=== PATIENT | male | born 1940 | race Caucasian/White ===

== ENCOUNTER 2018-03-16 05:41 | Inpatient (IN) | payer MEDICARE ==
[~2018-03-16 05:41] MED LIST: BUPIVACAINE INJ/PF LIPOSOME/PF 266 MG/20 ML SDV IJ PRN; CEFAZOLIN INJ 1 GM VIAL IV PRN; IBUPROFEN 800 MG/NS 250 ML IV PRN; LACTATED RINGERS 1000 ML IV PRN; LANSOPRAZOLE 15 MG TAB.RAP.DR PO PRN; LIDOCAINE 0.5% INJ-PF (5 MG/ML) 50 ML SDV SUBCUT PRN; OXYCODONE HCL SR 10 MG TABLET PO PRN; VANCOMYCIN HCL 1,000 MG in DEXTROSE 5%-WATER 250 ML IV PRN
[2018-03-16] MEDS ORDERED: THROMBIN (BOVINE) TOPICAL 20000 UNIT VIAL ONE (06:35)
[2018-03-16] MEDS ORDERED: BUPIVACAINE INJ/PF LIPOSOME/PF 266 MG/20 ML SDV ONE (06:36)
[2018-03-16] MEDS ORDERED: THROMBIN (BOVINE) 5000 UNIT EPITAXIS KIT ONE (06:36)
[2018-03-16] MEDS ORDERED: ONDANSETRON HCL INJ/PF 4 MG/2 ML SDV ONE (07:15)
[2018-03-16] MEDS ORDERED: MIDAZOLAM 2 MG/2 ML INJ ONE (07:15)
[2018-03-16] MEDS ORDERED: TRANEXAMIC ACID INJ/PF 1,000 MG/10 ML SDV IV ONE ×3 (07:15→10:30)
[2018-03-16] MEDS ORDERED: FENTANYL CITRATE INJ/PF 100 MCG/2 ML AMPUL ONE (07:15)
[2018-03-16] MEDS ORDERED: PROPOFOL INJ 200 MG/20 ML VIAL IV ONE (07:15)
[2018-03-16] MEDS ORDERED: BUPIVACAINE HCL/DEX-WATER/PF 15 MG/2 ML AMPULE ONE (07:17)
[2018-03-16] MEDS ORDERED: MORPHINE SULFATE 10 MG/ML INJ IV PRN ×4 (08:25→08:46)
[2018-03-16] MEDS ORDERED: FENTANYL CITRATE INJ/PF 100 MCG/2 ML AMPUL IV PRN ×3 (08:25)
[2018-03-16] MEDS ORDERED: OXYCODONE-ACETAMINOPHEN 5-325 MG TABLET PO PRN ×2 (08:25)
[2018-03-16] MEDS ORDERED: MEPERIDINE HCL/PF INJ 25 MG/1 ML DISP.SYRIN IV PRN (08:25)
[2018-03-16] MEDS ORDERED: PROMETHAZINE HCL INJ 25 MG/1 ML VIAL IV PRN ×2 (08:25)
[2018-03-16] MEDS ORDERED: DIPHENHYDRAMINE HCL 50 MG/ML VIAL IV PRN ×2 (08:25→08:46)
[2018-03-16] MEDS ORDERED: RINGERS SOLUTION,LACTATED 1,000 ML IV PRN (08:46)
[2018-03-16] MEDS ORDERED: ZOLPIDEM TARTRATE 5 MG TABLET PO PRN (08:46)
[2018-03-16] MEDS ORDERED: MORPHINE SULFATE 10 MG/ML INJ IM PRN (08:46)
[2018-03-16] MEDS ORDERED: ACETAMINOPHEN 325 MG TABLET PO PRN (08:46)
[2018-03-16] MEDS ORDERED: MAG HYDROX/AL HYDROX/SIMETH SUSP 30 ML UDCUP PO PRN (08:46)
[2018-03-16] MEDS ORDERED: ONDANSETRON 4 MG TAB.RAPDIS PO PRN (08:46)
[2018-03-16] MEDS ORDERED: OXYCODONE HCL IR 5 MG TABLET PO PRN (08:46)
--- NOTE | 2018-03-16 08:51 | Operative Report ---
Operative Report DATE OF SURGERY: 03/16/18 PREOPERATIVE DIAGNOSIS: Right hip arthritis OPERATION: Right hip arthroplasty SURGEON: NIRANJAN AGGARWAL ANESTHESIA: GA TISSUE REMOVED OR ALTERED: Femoral head to pathology ESTIMATED BLOOD LOSS: 100 PROCEDURE: Implants used: Femur: Carlos Manuel Accolade 2 stem size 8 Acetabular shell: 58 mm hemispherical shell Liner: 36 mm flat cross-link polyethylene liner Head: 36 mm chrome cobalt head +5 neck The patient is placed in a left lateral decubitus position on the operating table. The right lower extremity and hindquarter is prepped and draped in a sterile fashion. A curvilinear incision was made over the greater trochanter a posterior approach the hip was taken. The femoral head is dislocated and the femoral neck transected using an oscillating saw. Attention was next turned to the acetabulum. Soft tissues cleared off the acetabulum using electrocautery. The acetabulum was then prepared using a series of hemispherical reamers until a 58 millimeters reamer is seated. Subsequently a 58 millimeters Carlos Manuel titanium hemispherical shell is impacted into position and secured with one screw. A standard flat 36 millimeters cross- link liner is impacted into the shell. Attention was next turned to the femur. Access is gained to the femoral canal using a box osteotome to the piriformis fossa. The femur is then prepared using a series of broaches until a number 8 broach is seated. A trial reduction was now performed using a 36 millimeters head with +5 neck. Preoperative leg length was recreated and is excellent anterior posterior stability. A decision was made to proceed with the above construct. All trial implants were removed. The wound is irrigated with pulsed lavage. A number 8 stem is impacted into the femoral canal. A trial reduction was again performed with a 36 mm head and a +5 neck. Findings as previously. The hip was dislocated one last time and the final chrome-cobalt head is impacted onto the trunnion. The hip was reduced. Wound is copiously irrigated with pulsed lavage. Sent closed in layers using interrupted Vicryl followed by karyna. A sterile dressing is applied and the patient's returned to recovery room in satisfactory patient.
--- NOTE | 2018-03-16 09:44 | RADIOLOGY REPORT (SQ) ---
EXAM DESCRIPTION: PELVIS AP COMPLETED DATE/TIME: 03/16/2018 9:27 am REASON FOR STUDY: Post Op Long Cassette in PACU M16.11 UNILATERAL PRIMARY OSTEOARTHRITIS, RIGHT H IP M25.559 PAIN IN UNSPECIFIED HIP COMPARISON: None. NUMBER OF VIEWS: AP pelvis, frog-leg view (two views) TECHNIQUE: Digital radiographic images of the right hip post-procedure. LIMITATIONS: None. FINDINGS: BONES: No worrisome or unexpected findings post-procedure. DEVICE: Non cemented right hip replacement with acetabular component anchored by a single screw. SOFT TISSUES: No worrisome findings. Expected postoperative soft tissue changes. IMPRESSION: SATISFACTORY POSTOPERATIVE RIGHT HIP. TECHNICAL DOCUMENTATION: JOB ID: [id number] [employer]- All Rights Reserved Reading location - IP/workstation name: [email or web address]
[2018-03-16] MEDS ORDERED: (PENDING PHARMACY ID) (Lisinopril [Lisinopril] 20 MG) PO SCH (10:00)
[2018-03-16] MEDS ORDERED: GLYCOPYRROLATE 1 MG/5 ML SYRINGE ONE (11:56)
[2018-03-16] MEDS ORDERED: SUCCINYLCHOLINE CHLORIDE INJ 200 MG/10 ML VIAL ONE (11:56)
[2018-03-16] MEDS ORDERED: PHENYLEPHRINE HCL INJ/PF 10 MG/1 ML SDV ONE (11:56)
[2018-03-16] MEDS ORDERED: MELOXICAM 7.5 MG TABLET PO PRN (13:23)
[2018-03-16] MEDS: VENLAFAXINE HCL 75 MG CAP.SR.24H PO SCH (13:59)
[2018-03-16] MEDS: GABAPENTIN 300 MG CAPSULE PO SCH ×2 (14:25→22:17)
[2018-03-16] MEDS: IBUPROFEN 800 MG in NORMAL SALINE 250 ML IV SCH (14:26)
[2018-03-16] MEDS ORDERED: TAMSULOSIN HCL 0.4 MG CAP.SR.24H PO ONE (15:00)
[2018-03-16] MEDS: CALCIUM CARBONATE 500 MG TABLET PO SCH (16:11)
[2018-03-16] MEDS ORDERED: TAMSULOSIN HCL 0.4 MG CAP.SR.24H PO SCH (17:00)
[2018-03-16] MEDS ORDERED: (PENDING PHARMACY ID) (Calcium Carbonate [Calcium] 600 MG) PO SCH (17:00)
[2018-03-16] MEDS: OXYCODONE HCL SR 10 MG TABLET PO SCH (17:49)
[2018-03-16] MEDS: SENNOSIDES/DOCUSATE 8.6-50 MG 1 EACH TABLET PO SCH (17:49)
[2018-03-16] MEDS ORDERED: VANCOMYCIN HCL 1,000 MG in DEXTROSE 5%-WATER 250 ML IV ONE (21:00)
[2018-03-16] MEDS ORDERED: SIMVASTATIN 40 MG TABLET PO SCH (22:00)
[2018-03-16] MEDS ORDERED: VERAPAMIL HCL 120 MG TABLET PO SCH (22:00)
[2018-03-16] MEDS: VERAPAMIL HCL 120 MG TABLET.SA PO SCH (22:17)
[2018-03-16] MEDS: SIMVASTATIN 40 MG TABLET PO SCH (22:17)
[2018-03-17] MEDS: IBUPROFEN 800 MG in NORMAL SALINE 250 ML IV SCH ×2 (00:04→05:49)
[2018-03-17] MEDS: OXYCODONE HCL SR 10 MG TABLET PO SCH ×2 (05:52→17:13)
[2018-03-17] MEDS: LANSOPRAZOLE 30 MG TAB.RAP.DR PO SCH (05:53)
[2018-03-17] MEDS: GABAPENTIN 300 MG CAPSULE PO SCH ×3 (05:53→21:20)
[2018-03-17 06:29] LABS: HEMATOCRIT 41.5 % (37.9-51.0); HEMOGLOBIN 13.5 g/dL (13.5-17.0); MEAN CORPUSCULAR HEMOGLOBIN 28.4 pg (27.0-33.4); MEAN CORPUSCULAR HGB CONC 32.6 g/dL (32.0-36.0); MEAN CORPUSCULAR VOLUME 87 fl (80-97); PLATELET COUNT 242 10^3/uL (150-450); RED BLOOD COUNT 4.77 10^6/uL (4.35-5.55); RED CELL DISTRIBUTION WIDTH 13.9 % (11.5-14.0); WHITE BLOOD COUNT 16.4 10^3/uL (4.0-10.5)
--- NOTE | 2018-03-17 06:45 | PDOC PROGRESS REPORT ---
Subjective Progress Note for:: 03/17/18 Reason For Visit: RIGHT HIP ARTHRITIS 77-year-old white male postop day 1 right hip arthroplasty. Patient denies any significant discomfort. Patient ambulated 30 feet with physical therapy yesterday. Physical Exam Vital Signs: Temp Pulse Resp BP Pulse Ox 36.8 C 86 16 147/64 H 97 03/16/18 20:39 03/16/18 20:39 03/16/18 20:39 03/16/18 20:39 03/17/18 00:48 Intake & Output 03/15/18 03/16/18 03/17/18 06:59 06:59 06:59 Intake Total 0 4766 Output Total 3050 Balance 0 1716 Weight 140.8 kg General appearance: PRESENT: no acute distress, obese Head exam: PRESENT: normocephalic Respiratory exam: PRESENT: unlabored Cardiovascular exam: PRESENT: RRR Pulses: PRESENT: +1 pedal pulses bilateral Vascular exam: PRESENT: normal capillary refill GI/Abdominal exam: PRESENT: soft Rectal exam: PRESENT: deferred Extremities exam: PRESENT: other - Right hip dressing clean dry and intact. Leg lengths are equal. Distal neurovascular examination is intact. Neurological exam: PRESENT: alert, awake, oriented to person, oriented to place , oriented to time, oriented to situation. ABSENT: motor sensory deficit Psychiatric exam: PRESENT: appropriate affect, normal mood. ABSENT: homicidal ideation, suicidal ideation Skin exam: PRESENT: dry, intact, warm. ABSENT: cyanosis, rash Results Laboratory Results: 03/17/18 05:56 03/16/18 03/17/18 06:20 05:56 WBC 16.4 H RBC 4.77 Hgb 13.5 Hct 41.5 MCV 87 MCH 28.4 MCHC 32.6 RDW 13.9 Plt Count 242 Blood Type A POSITIVE Antibody Screen NEGATIVE Impressions: Pelvis X-Ray 03/16/18 08:47 IMPRESSION: SATISFACTORY POSTOPERATIVE RIGHT HIP. Status: Imported from PACS Assessment & Plan - Diagnosis (1) Arthritis of right hip Is this a current diagnosis for this admission?: Yes Plan: Patient to be mobilized with physical therapy and weightbearing as tolerated basis. Anticipate discharge home tomorrow with home health services and DME. - Time Time Spent with patient: 15-24 minutes Anticipated discharge: Home with Homehealth Within: within 24 hours
[2018-03-17 06:52] LABS: ANION GAP 13 (5-19); BLOOD UREA NITROGEN 22 mg/dL (7-20); CALCIUM 8.8 mg/dL (8.4-10.2); CARBON DIOXIDE 26 mmol/L (22-30); CHLORIDE 104 mmol/L (98-107); GLUCOSE 123 mg/dL (75-110); POTASSIUM 5.1 mmol/L (3.6-5.0); SODIUM 142.9 mmol/L (137-145)
[2018-03-17] MEDS: PRENATAL VITAMIN W DHA CAPSULE PO SCH (09:22)
[2018-03-17] MEDS: ASPIRIN 81 MG TABLET, CHEWABLE PO SCH (09:23)
[2018-03-17] MEDS: CALCIUM CARBONATE 500 MG TABLET PO SCH ×2 (09:23→16:11)
[2018-03-17] MEDS: CHOLECALCIFEROL (D3) 1,000 UNIT TABLET PO SCH (09:23)
[2018-03-17] MEDS: SENNOSIDES/DOCUSATE 8.6-50 MG 1 EACH TABLET PO SCH ×2 (09:23→17:13)
[2018-03-17] MEDS: VENLAFAXINE HCL 75 MG CAP.SR.24H PO SCH ×2 (09:23→11:32)
[2018-03-17] MEDS ORDERED: VENLAFAXINE HCL 75 MG CAP.SR.24H PO SCH (10:00)
[2018-03-17] MEDS ORDERED: (PENDING PHARMACY ID) (Lisinopril [Prinivil] 20 MG) PO SCH (10:00)
[2018-03-17] MEDS ORDERED: TAMSULOSIN HCL 0.4 MG CAP.SR.24H PO SCH (10:00)
[2018-03-17] MEDS: VERAPAMIL HCL 120 MG TABLET.SA PO SCH ×2 (10:00→21:20)
[2018-03-17] MEDS: ONDANSETRON HCL INJ/PF 4 MG/2 ML SDV IV PRN ×2 (10:27→17:54)
[2018-03-17] MEDS: LISINOPRIL 10 MG TABLET PO SCH (11:18)
[2018-03-17] MEDS: IBUPROFEN 800 MG in DEXTROSE 5%-WATER 250 ML IV SCH ×2 (13:44→21:50)
[2018-03-17] MEDS: TAMSULOSIN HCL 0.4 MG CAP.SR.24H PO SCH (16:11)
[2018-03-17] MEDS: SIMVASTATIN 40 MG TABLET PO SCH (21:21)
[2018-03-18] MEDS: LANSOPRAZOLE 30 MG TAB.RAP.DR PO SCH (05:08)
[2018-03-18] MEDS: OXYCODONE HCL SR 10 MG TABLET PO SCH (05:08)
[2018-03-18] MEDS: GABAPENTIN 300 MG CAPSULE PO SCH ×3 (05:08→21:57)
[2018-03-18 05:41] LABS: HEMATOCRIT 39.4 % (37.9-51.0); HEMOGLOBIN 13.3 g/dL (13.5-17.0); MEAN CORPUSCULAR HEMOGLOBIN 29.4 pg (27.0-33.4); MEAN CORPUSCULAR HGB CONC 33.9 g/dL (32.0-36.0); MEAN CORPUSCULAR VOLUME 87 fl (80-97); PLATELET COUNT 232 10^3/uL (150-450); RED BLOOD COUNT 4.53 10^6/uL (4.35-5.55); RED CELL DISTRIBUTION WIDTH 13.7 % (11.5-14.0); WHITE BLOOD COUNT 18.6 10^3/uL (4.0-10.5)
[2018-03-18 06:07] LABS: ANION GAP 14 (5-19); BLOOD UREA NITROGEN 34 mg/dL (7-20); CALCIUM 8.6 mg/dL (8.4-10.2); CARBON DIOXIDE 25 mmol/L (22-30); CHLORIDE 103 mmol/L (98-107); GLUCOSE 115 mg/dL (75-110); POTASSIUM 5.9 mmol/L (3.6-5.0); SODIUM 142.1 mmol/L (137-145)
[2018-03-18] MEDS: IBUPROFEN 800 MG in DEXTROSE 5%-WATER 250 ML IV SCH (06:07)
--- NOTE | 2018-03-18 07:38 | PDOC PROGRESS REPORT ---
Subjective Progress Note for:: 03/18/18 Reason For Visit: RIGHT HIP ARTHRITIS 77-year-old white male now postop day 2 from right hip arthroplasty. Patient exhibiting nausea and vomiting, hyperkalemia, and mental status changes last night. Physical Exam Vital Signs: Temp Pulse Resp BP Pulse Ox 36.8 C 93 17 127/60 H 94 03/17/18 19:35 03/17/18 19:35 03/17/18 19:35 03/17/18 19:35 03/17/18 19:35 Intake & Output 03/17/18 03/18/18 03/19/18 06:59 06:59 06:59 Intake Total 5016 1952 Output Total 3050 960 Balance 1966 992 Weight 140.8 kg 140.6 kg Physical Exam: Mental status is clear and appropriate this morning. Nausea seems to have resolved. General appearance: PRESENT: no acute distress Head exam: PRESENT: normocephalic Respiratory exam: PRESENT: unlabored Cardiovascular exam: PRESENT: RRR Pulses: PRESENT: +1 pedal pulses bilateral Vascular exam: PRESENT: normal capillary refill GI/Abdominal exam: PRESENT: soft Rectal exam: PRESENT: deferred Extremities exam: PRESENT: other - Right hip dressing with no new drainage. Leg lengths are equal. Distal neurovascular examination is intact. Neurological exam: PRESENT: alert, awake, oriented to person, oriented to place , oriented to time, oriented to situation. ABSENT: motor sensory deficit Psychiatric exam: PRESENT: appropriate affect, normal mood. ABSENT: homicidal ideation, suicidal ideation Results Laboratory Results: 03/18/18 04:51 03/18/18 04:51 03/18/18 03/18/18 04:51 04:51 WBC 18.6 H RBC 4.53 Hgb 13.3 L Hct 39.4 MCV 87 MCH 29.4 MCHC 33.9 RDW 13.7 Plt Count 232 Sodium 142.1 Potassium 5.9 H Chloride 103 Carbon Dioxide 25 Anion Gap 14 BUN 34 H Creatinine 2.28 H Est GFR ( Amer) 34 L Est GFR (Non-Af Amer) 28 L Glucose 115 H Calcium 8.6 Impressions: Pelvis X-Ray 03/16/18 08:47 IMPRESSION: SATISFACTORY POSTOPERATIVE RIGHT HIP. Status: Imported from PACS Assessment & Plan - Diagnosis (1) Arthritis of right hip Is this a current diagnosis for this admission?: Yes Plan: Patient's potassium is 5.9. Labs to be repeated this morning. Mental status changes seems to have resolved. Nausea and vomiting not present currently. Making progress with physical therapy. - Time Time Spent with patient: 15-24 minutes Anticipated discharge: Home with Homehealth Within: Other - Plan Summary Plan Summary: Patient to continue with inpatient physical therapy. Treatment of hyperkalemia of repeated labs confirm
[2018-03-18 08:12] LABS: ANION GAP 12 (5-19); BLOOD UREA NITROGEN 33 mg/dL (7-20); CALCIUM 8.4 mg/dL (8.4-10.2); CARBON DIOXIDE 24 mmol/L (22-30); CHLORIDE 103 mmol/L (98-107); GLUCOSE 155 mg/dL (75-110); SODIUM 138.7 mmol/L (137-145)
[2018-03-18] MEDS: CALCIUM CARBONATE 500 MG TABLET PO SCH ×2 (08:37→17:05)
[2018-03-18] MEDS: SENNOSIDES/DOCUSATE 8.6-50 MG 1 EACH TABLET PO SCH ×2 (10:35→17:05)
[2018-03-18] MEDS: CHOLECALCIFEROL (D3) 1,000 UNIT TABLET PO SCH (10:35)
[2018-03-18] MEDS: VENLAFAXINE HCL 75 MG CAP.SR.24H PO SCH (10:35)
[2018-03-18] MEDS: LISINOPRIL 10 MG TABLET PO SCH (10:36)
[2018-03-18] MEDS: PRENATAL VITAMIN W DHA CAPSULE PO SCH (10:36)
[2018-03-18] MEDS: ASPIRIN 81 MG TABLET, CHEWABLE PO SCH (10:36)
[2018-03-18] MEDS: VERAPAMIL HCL 120 MG TABLET.SA PO SCH (10:37)
[2018-03-18 12:06] LABS: APPEARANCE,URINE SLIGHTLY-CLOUDY; BILIRUBIN,URINE NEGATIVE (NEGATIVE); COLOR,URINE YELLOW; GLUCOSE, URINE 50 mg/dL (NEGATIVE); KETONES,URINE NEGATIVE (NEGATIVE); LEUKOCYTE ESTERASE,URINE TRACE (NEGATIVE); NITRITE,URINE NEGATIVE (NEGATIVE); PROTEIN,URINE 30 mg/dL (NEGATIVE); URINE SPECIFIC GRAVITY 1.015; UROBILINOGEN,URINE NEGATIVE mg/dL (<2.0)
--- NOTE | 2018-03-18 14:07 | RADIOLOGY REPORT (SQ) ---
EXAM DESCRIPTION: CHEST SINGLE VIEW COMPLETED DATE/TIME: 03/18/2018 11:25 am REASON FOR STUDY: PNEUMONIA COMPARISON: None. EXAM PARAMETERS: NUMBER OF VIEWS: One view. TECHNIQUE: Single frontal radiographic view of the chest acquired. RADIATION DOSE: NA LIMITATIONS: None. FINDINGS: LUNGS AND PLEURA: No opacities, masses or pneumothorax. No pleural effusion. MEDIASTINUM AND HILAR STRUCTURES: No masses. Contour normal. HEART AND VASCULAR STRUCTURES: Moderate cardiomegaly BONES: Advanced arthritis of both shoulders, loose body right shoulder subcoracoid recess HARDWARE: Left-sided dual lead pacemaker OTHER: No other significant finding. IMPRESSION: Cardiomegaly. No acute infiltrates. TECHNICAL DOCUMENTATION: JOB ID: [id number] [employer]- All Rights Reserved Reading location - IP/workstation name: [email or web address]
[2018-03-18] MEDS ORDERED: 1/2 NORMAL SALINE 1,000 ML IV PRN (15:38)
--- NOTE | 2018-03-18 15:53 | PDOC CONSULTATION ---
Consultation Consult Date: 03/18/18 Attending physician:: NIRANJAN AGGARWAL Consult reason:: Acute renal failure and leukocytosis postoperatively History of Present Illness Admission Date/PCP: 03/16/18 05:41 DAKOTA CROW Patient complains of: Patient was admitted for routine total hip replacement History of Present Illness: CASSY JIMÉNEZ is a 77 year old male Hypertension, degenerative joint disease, cardiac pacemaker placement, obesity had a routine total hip replacement done. Consultation was requested due to acute renal failure with a creatinine of 2.25 as well as leukocytosis with his white count at 18,000. Patient is 2 days postop. There are no immediate labs that I can find preoperatively but he did have some labs done in February which revealed a creatinine of about 1.06. Apparently patient had a lot of vomiting and nausea yesterday which is pretty substantial and was thought to be likely from narcotics as well as the anesthesia effect. This seems to have resolved as he has had no nausea and vomiting today. He denies any change in his urine quantity or quality and denies any abdominal pain although fever or dysuria or frequency. He does complain of some slight cough is nonproductive. Patient is a somewhat poor historian so I am really unable to obtain much of his past medical history and he looks like he really has not been admitted to the hospital prior to this admission Past Medical History Cardiac Medical History: Reports: Myocardial Infarction, Hyperlipidema, Hypertension Denies: Atrial Fibrillation, Congestive Heart Failure, Coronary Artery Disease, Peripheral Vascular Disease, Pulmonary Embolism, Heart Murmur Pulmonary Medical History: Reports: Sleep Apnea - doesn't use CPAP Denies: Asthma, Bronchitis, Chronic Obstructive Pulmonary Disease (COPD), Pneumonia, Respiratory Failure, Tuberculosis Neurological Medical History: Denies: Seizures Endocrine Medical History: Denies: Hyperthyroidism, Hypothyroidism Malignancy Medical History: Denies: Lung Cancer GI Medical History: Denies: Crohn's Disease, Gastroesophageal Reflux Disease, Hiatal Hernia Musculoskeltal Medical History: Reports: Arthritis - knees, hips, hands Denies: Fibromyalgia Psychiatric Medical History: Reports: Depression Denies: Bipolar Disorder, Post Traumatic Stress Disorder Hematology: Denies: Anemia Past Surgical History Past Surgical History: Reports: Appendectomy - 1992, Cholecystectomy, Herniorrhaphy, Orthopedic Surgery, Pacemaker Denies: Colostomy, Coronary Artery Bypass Graft, Gastric Bypass Surgery, Tonsillectomy Social History Information Source: [facility] Records Smoking Status: Never Smoker Hx Recreational Drug Use: No Hx Prescription Drug Abuse: No - Advance Directive Resuscitation Status: Full Code Family History Family History: None Parental Family History Reviewed: No Children Family History Reviewed: Unknown Sibling(s) Family History Reviewed.: Unknown Medication/Allergy Home Medications: Aspirin [Aspirin EC] 81 mg PO DAILY 03/16/18 Calcium Carbonate [Calcium] 600 mg PO BIDBS 03/16/18 Cholecalciferol (Vitamin D3) [Vitamin D3 1000 Unit Tablet] 1,000 unit PO DAILY 03/16/18 Gabapentin [Neurontin] 600 mg PO Q8 03/16/18 Lisinopril [Prinivil] 20 mg PO DAILY 03/16/18 Meloxicam [Mobic] 7.5 mg PO DAILYP PRN 03/16/18 Simvastatin [Zocor 40 mg Tablet] 40 mg PO QHS 03/16/18 Tamsulosin HCl [Flomax 0.4 mg Cap.sr] 0.4 mg PO DAILY 03/16/18 Venlafaxine HCl ER [Effexor Xr 75 mg Cap.sr] 225 mg PO DAILY 03/16/18 Verapamil HCl [Calan 120 mg Tablet] 120 mg PO Q12 03/16/18 Allergies/Adverse Reactions: adalimumab [From Humira] Allergy (Verified 03/16/18 11:57) Skin Redness Review of Systems All systems: reviewed and no additional remarkable complaints except as stated Physical Exam Vital Signs: Temp Pulse Resp BP Pulse Ox 98.6 F 95 18 137/59 H 93 03/18/18 11:09 03/18/18 11:09 03/18/18 11:09 03/18/18 11:09 03/18/18 11:09 Intake & Output 03/17/18 03/18/18 03/19/18 06:59 06:59 06:59 Intake Total 5016 1952 Output Total 3050 960 Balance 1966 992 Weight 140.8 kg 140.6 kg General appearance: PRESENT: no acute distress, morbidly obese, well-developed, well-nourished Head exam: PRESENT: atraumatic, normocephalic Eye exam: PRESENT: conjunctiva pink, EOMI, PERRLA. ABSENT: scleral icterus Ear exam: PRESENT: normal external ear exam Mouth exam: PRESENT: moist, tongue midline Neck exam: ABSENT: carotid bruit, JVD, lymphadenopathy, thyromegaly Respiratory exam: PRESENT: clear to auscultation gabby. ABSENT: rales, rhonchi, wheezes Cardiovascular exam: PRESENT: RRR. ABSENT: diastolic murmur, rubs, systolic murmur Pulses: PRESENT: normal dorsalis pedis pul Vascular exam: PRESENT: normal capillary refill GI/Abdominal exam: PRESENT: normal bowel sounds, soft. ABSENT: distended, guarding, mass, organolmegaly, rebound, tenderness Rectal exam: PRESENT: deferred Extremities exam: PRESENT: other - R thigh dressing, erythema and mild swelling. ABSENT: calf tenderness, clubbing, pedal edema Musculoskeletal exam: PRESENT: ambulatory Neurological exam: PRESENT: alert, awake, oriented to person, oriented to place , oriented to time, oriented to situation, CN II-XII grossly intact. ABSENT: motor sensory deficit Psychiatric exam: PRESENT: appropriate affect, normal mood. ABSENT: homicidal ideation, suicidal ideation Skin exam: PRESENT: dry, intact, warm. ABSENT: cyanosis, rash Results Laboratory Results: 03/18/18 04:51 03/18/18 07:22 03/18/18 03/18/18 03/18/18 04:51 04:51 07:22 WBC 18.6 H RBC 4.53 Hgb 13.3 L Hct 39.4 MCV 87 MCH 29.4 MCHC 33.9 RDW 13.7 Plt Count 232 Sodium 142.1 138.7 Potassium 5.9 H 5.0 Chloride 103 103 Carbon Dioxide 25 24 Anion Gap 14 12 BUN 34 H 33 H Creatinine 2.28 H 2.34 H Est GFR ( Amer) 34 L 33 L Est GFR (Non-Af Amer) 28 L 27 L Glucose 115 H 155 H Calcium 8.6 8.4 Urine Color Urine Appearance Urine pH Ur Specific [place] Urine Protein Urine Glucose (UA) Urine Ketones Urine Blood Urine Nitrite Ur Leukocyte Esterase Urine WBC (Auto) Urine RBC (Auto) 03/18/18 11:20 WBC RBC Hgb Hct MCV MCH MCHC RDW Plt Count Sodium Potassium Chloride Carbon Dioxide Anion Gap BUN Creatinine Est GFR ( Amer) Est GFR (Non-Af Amer) Glucose Calcium Urine Color YELLOW Urine Appearance SLIGHTLY-CLOUDY Urine pH 5.0 Ur Specific [place] 1.015 Urine Protein 30 H Urine Glucose (UA) 50 H Urine Ketones NEGATIVE Urine Blood SMALL H Urine Nitrite NEGATIVE Ur Leukocyte Esterase TRACE H Urine WBC (Auto) 52 Urine RBC (Auto) 1 Impressions: Pelvis X-Ray 03/16/18 08:47 IMPRESSION: SATISFACTORY POSTOPERATIVE RIGHT HIP. Chest X-Ray 03/18/18 00:00 IMPRESSION: Cardiomegaly. No acute infiltrates. Assessment & Plan - Diagnosis (1) YASMINE (acute kidney injury) Is this a current diagnosis for this admission?: Yes Plan: Likely secondary to intravascular volume depletion due to intractable nausea vomiting. We will plan cautious IV fluid. Will follow-up on labs in a.m. At this time I really will not pursue any other test unless his kidney function does not improve (2) UTI (urinary tract infection) Is this a current diagnosis for this admission?: Yes Plan: He has a mild UTI and so I will obtain urine culture and place him on empiric antibiotics (3) Dehydration Is this a current diagnosis for this admission?: Yes Plan: Cautious IV fluid as mentioned above (4) Arthritis of right hip Is this a current diagnosis for this admission?: Yes Plan: Status post total hip arthroplasty (5) Leukocytosis Qualifiers: Leukocytosis type: unspecified Qualified Code(s): D72.829 - Elevated white blood cell count, unspecified Is this a current diagnosis for this admission?: Yes Plan: I believe this is likely a reactive leukocytosis. There is no evidence of any overt infection. He does have a UTI but this should not cause this amount of leukocytosis. Will place on empiric antibiotic for his UTI and follow-up on his WBC count - Time Time Spent: 30 to 50 Minutes Medications reviewed and adjusted accordingly: Yes Anticipated discharge: Home Within: within 48 hours - Inpatient Certification Based on my medical assessment, after consideration of the patient's comorbidities, presenting symptoms, or acuity I expect that the services needed warrant INPATIENT care.: Yes Medical Necessity: Need For IV Fluids, Risk of Diagnosis Which Will Require Inpatient Eval/Care/Monitoring
[2018-03-18] MEDS ORDERED: CEFTRIAXONE 1 GM/D5W RTU 1 GM/50 ML RTUPB IV SCH (16:00)
[2018-03-18] MEDS: TAMSULOSIN HCL 0.4 MG CAP.SR.24H PO SCH (17:05)
[2018-03-18] MEDS ORDERED: CEFTRIAXONE SODIUM 1,000 MG in NORMAL SALINE 50 ML IV SCH (18:00)
[2018-03-18] MEDS ORDERED: CEFTRIAXONE SODIUM 1,000 MG in DEXTROSE 5%-WATER 50 ML IV SCH (18:00)
[2018-03-18] MEDS: SIMVASTATIN 40 MG TABLET PO SCH (21:57)
[2018-03-18] MEDS: VERAPAMIL HCL 120 MG TABLET PO SCH (21:58)
[2018-03-19] MEDS: LANSOPRAZOLE 30 MG TAB.RAP.DR PO SCH (05:34)
[2018-03-19] MEDS: GABAPENTIN 300 MG CAPSULE PO SCH ×2 (05:34→14:43)
[2018-03-19 06:09] LABS: HEMOGLOBIN 12.1 g/dL (13.5-17.0); MEAN CORPUSCULAR HGB CONC 33.6 g/dL (32.0-36.0); MEAN CORPUSCULAR VOLUME 86 fl (80-97); PLATELET COUNT 217 10^3/uL (150-450); RED BLOOD COUNT 4.18 10^6/uL (4.35-5.55); RED CELL DISTRIBUTION WIDTH 13.7 % (11.5-14.0); WHITE BLOOD COUNT 13.5 10^3/uL (4.0-10.5)
--- NOTE | 2018-03-19 06:24 | PDOC PROGRESS REPORT ---
Subjective Progress Note for:: 03/19/18 Reason For Visit: RIGHT HIP ARTHRITIS 77-year-old white male postop day 3 status post right hip arthroplasty. Patient now denies nausea vomiting or significant discomfort. Made limited progress with physical therapy yesterday ambulating 30 feet. UA is consistent with a UTI. Patient on empiric antibiotics for this. Repeat labs pending this morning. Physical Exam Vital Signs: Temp Pulse Resp BP Pulse Ox 37.0 C 95 18 137/59 H 93 03/18/18 11:09 03/18/18 11:09 03/18/18 11:09 03/18/18 11:09 03/18/18 11:09 Intake & Output 03/17/18 03/18/18 03/19/18 06:59 06:59 06:59 Intake Total 5016 1952 1578 Output Total 3050 960 925 Balance 1966 992 653 Weight 140.8 kg 140.6 kg 140.6 kg General appearance: PRESENT: no acute distress, obese Head exam: PRESENT: normocephalic Respiratory exam: PRESENT: unlabored Cardiovascular exam: PRESENT: RRR Pulses: PRESENT: +1 pedal pulses bilateral Vascular exam: PRESENT: normal capillary refill GI/Abdominal exam: PRESENT: soft Rectal exam: PRESENT: deferred Extremities exam: PRESENT: other - Right hip dressing which is a postoperative dressing remains clean dry and intact. Leg lengths are equal. Distal neurovascular examination is intact. Neurological exam: PRESENT: alert, awake, oriented to person, oriented to place , oriented to time, oriented to situation. ABSENT: motor sensory deficit Psychiatric exam: PRESENT: appropriate affect, normal mood. ABSENT: homicidal ideation, suicidal ideation Skin exam: PRESENT: dry, intact, warm. ABSENT: cyanosis, rash Results Laboratory Results: 03/19/18 05:38 03/18/18 03/18/18 03/19/18 07:22 11:20 05:38 WBC 13.5 H RBC 4.18 L Hgb 12.1 L Hct 36.0 L MCV 86 MCH 29.0 MCHC 33.6 RDW 13.7 Plt Count 217 Sodium 138.7 Potassium 5.0 Chloride 103 Carbon Dioxide 24 Anion Gap 12 BUN 33 H Creatinine 2.34 H Est GFR ( Amer) 33 L Est GFR (Non-Af Amer) 27 L Glucose 155 H Calcium 8.4 Urine Color YELLOW Urine Appearance SLIGHTLY-CLOUDY Urine pH 5.0 Ur Specific [place] 1.015 Urine Protein 30 H Urine Glucose (UA) 50 H Urine Ketones NEGATIVE Urine Blood SMALL H Urine Nitrite NEGATIVE Ur Leukocyte Esterase TRACE H Urine WBC (Auto) 52 Urine RBC (Auto) 1 Impressions: Pelvis X-Ray 03/16/18 08:47 IMPRESSION: SATISFACTORY POSTOPERATIVE RIGHT HIP. Chest X-Ray 03/18/18 00:00 IMPRESSION: Cardiomegaly. No acute infiltrates. Status: Imported from PACS Assessment & Plan - Diagnosis (1) Arthritis of right hip Is this a current diagnosis for this admission?: Yes Plan: 77-year-old white male postop day 3 status post right hip arthroplasty. Labs pending this morning. These are normalizing potentially consider sending him home this afternoon with home health services and DME. - Time Time Spent with patient: 15-24 minutes Anticipated discharge: Home with Homehealth Within: within 24 hours
[2018-03-19 06:37] LABS: ANION GAP 11 (5-19); BLOOD UREA NITROGEN 32 mg/dL (7-20); CALCIUM 8.7 mg/dL (8.4-10.2); CARBON DIOXIDE 27 mmol/L (22-30); CHLORIDE 103 mmol/L (98-107); GLUCOSE 125 mg/dL (75-110); POTASSIUM 4.5 mmol/L (3.6-5.0); SODIUM 140.5 mmol/L (137-145)
[2018-03-19] MEDS: CALCIUM CARBONATE 500 MG TABLET PO SCH (07:48)
[2018-03-19] MEDS: ASPIRIN 81 MG TABLET, CHEWABLE PO SCH (10:53)
[2018-03-19] MEDS: SENNOSIDES/DOCUSATE 8.6-50 MG 1 EACH TABLET PO SCH (10:53)
[2018-03-19] MEDS: CHOLECALCIFEROL (D3) 1,000 UNIT TABLET PO SCH (10:53)
[2018-03-19] MEDS: VENLAFAXINE HCL 75 MG CAP.SR.24H PO SCH (10:53)
[2018-03-19] MEDS: PRENATAL VITAMIN W DHA CAPSULE PO SCH (10:53)
[2018-03-19] MEDS: VERAPAMIL HCL 120 MG TABLET PO SCH (10:54)
[2018-03-19 13:58] VITALS: BP 131/78
--- NOTE | 2018-04-01 06:00 | PDOC DISCHARGE SUMMARY ---
General - Admit/Disc Date/PCP Admission Date/Primary Care Provider: 03/16/18 05:41 DAKOTA CROW Discharge Date: 03/20/18 - Discharge Diagnosis (1) Arthritis of right hip Is this a current diagnosis for this admission?: Yes - Additional Information Resuscitation Status: Full Code Discharge Diet: Cardiac Discharge Activity: Balance Activity w/Rest, No Driving, No tub bath Prescriptions: Cephalexin Monohydrate [Keflex 500 mg Capsule] 500 mg PO Q8H #15 capsule Home Medications: Aspirin [Aspirin EC] 81 mg PO DAILY 03/16/18 Calcium Carbonate [Calcium] 600 mg PO BIDBS 03/16/18 Cholecalciferol (Vitamin D3) [Vitamin D3 1000 Unit Tablet] 1,000 unit PO DAILY 03/16/18 Gabapentin [Neurontin] 600 mg PO Q8 03/16/18 Lisinopril [Prinivil] 20 mg PO DAILY 03/16/18 Meloxicam [Mobic] 7.5 mg PO DAILYP PRN 03/16/18 Simvastatin [Zocor 40 mg Tablet] 40 mg PO QHS 03/16/18 Tamsulosin HCl [Flomax 0.4 mg Cap.sr] 0.4 mg PO DAILY 03/16/18 Venlafaxine HCl ER [Effexor Xr 75 mg Cap.sr] 225 mg PO DAILY 03/16/18 Verapamil HCl [Calan 120 mg Tablet] 120 mg PO Q12 03/16/18 Cephalexin Monohydrate [Keflex 500 mg Capsule] 500 mg PO Q8H #15 capsule History of Present Illness History of Present Illness: CASSY JIMÉNEZ is a 77 year old male The patient is a 77-year-old white male who presents with complaints of bilateral hip pain, right greater than left. Pain is attributable to osteoarthritis. Patient is admitted for elective right hip arthroplasty. Hospital Course Hospital Course: Patient is admitted through the operating room where he undergoes uncomplicated right hip arthroplasty. Is returned to floor in satisfactory condition. There is some medical issues are addressed through a hospital consult. He seen by physical therapy for progressive weightbearing as tolerated ambulation. He makes excellent progress in this regard. Physical Exam Vital Signs: Temp Pulse Resp BP Pulse Ox 36.9 C 81 20 131/78 H 95 03/19/18 13:55 03/19/18 13:55 03/19/18 13:55 03/19/18 13:55 03/19/18 13:55 General appearance: PRESENT: no acute distress, obese Respiratory exam: PRESENT: unlabored Cardiovascular exam: PRESENT: RRR Pulses: PRESENT: +1 pedal pulses bilateral Vascular exam: PRESENT: normal capillary refill GI/Abdominal exam: PRESENT: soft Rectal exam: PRESENT: deferred Extremities exam: PRESENT: other - Leg lengths are equal. Distal neurovascular examination is intact. Neurological exam: PRESENT: alert, awake, oriented to person, oriented to place , oriented to time, oriented to situation. ABSENT: motor sensory deficit Results Laboratory Results: 03/19/18 05:38 03/19/18 05:38 03/19/18 05:38 NT-Pro-B Natriuret Pep 2970 H Impressions: Pelvis X-Ray 03/16/18 08:47 IMPRESSION: SATISFACTORY POSTOPERATIVE RIGHT HIP. Chest X-Ray 03/18/18 00:00 IMPRESSION: Cardiomegaly. No acute infiltrates. Status: Imported from PACS Qualifiers - * PATIENT BEING DISCHARGED WITH ANY OF THE FOLLOWING DIAGNOSIS: No VTE patient discharged on overlapping Therapy?: Yes Plan Discharge Plan: Patient be discharged home with home health services and DME. Follow-up with Dr. Tacho Garcia [place] for surgery in 2 weeks for staple removal.
== END 2018-03-19 15:40 | disposition home health service (06) | DRG 470 ==
LOC: INOR 05:41 → 4S 10:47
PROVIDERS: ADMIT Orthopaedic Surgery; ATTEND Orthopaedic Surgery
PROC: 0SR902A Replacement of Right Hip Joint with Metal on Polyethylene Synthetic Substitute, Uncemented, Open Approach (ICD-10-PCS; principal; 2018-03-16 07:30)
DX: M16.11 Unilateral primary osteoarthritis, right hip (principal); N17.9 Acute kidney failure, unspecified; Z68.42 Body mass index [BMI] 45.0-49.9, adult; N39.0 Urinary tract infection, site not specified; I10 Essential (primary) hypertension; E66.9 Obesity, unspecified; E78.00 Pure hypercholesterolemia, unspecified; G47.30 Sleep apnea, unspecified; M17.0 Bilateral primary osteoarthritis of knee; M19.042 Primary osteoarthritis, left hand; M19.041 Primary osteoarthritis, right hand; F32.9 Major depressive disorder, single episode, unspecified; E86.0 Dehydration; E87.5 Hyperkalemia; I25.2 Old myocardial infarction; Z87.891 Personal history of nicotine dependence; Z79.899 Other long term (current) drug therapy; Z95.0 Presence of cardiac pacemaker; Z90.49 Acquired absence of other specified parts of digestive tract; Z88.8 Allergy status to other drugs, medicaments and biological substances; Z83.3 Family history of diabetes mellitus; Z82.49 Family history of ischemic heart disease and other diseases of the circulatory system
CPT/HCPCS: 01214; 36415; 71045; 72170; 80048; 81001; 82962; 83880; 85027; 86850; 86900; 86901; 87086; 88304; 88311; 94799; C1776; C9290; G8978-GP; G8979-GP; G8987-GO; G8988-GO; J0330; J0690; J0696; J1741; J2250; J2370; J2405; J2704; J3010; J3370; J3490; J7050; J7060